=== PATIENT | female | born 1970 | race Asian ===

== ENCOUNTER 2023-01-10 19:27 | Emergency (ER) | payer OTHER ==
[~2023-01-10] VITALS: Ht 165.1 cm; Wt 64.9 kg
[2023-01-10 19:45] VITALS: TEMP 98.2
[2023-01-10 22:10] VITALS: BP 96/60
== END 2023-01-10 22:10 | disposition home or self-care (01) ==
LOC: ED 19:27
DX: G43.909 Migraine, unspecified, not intractable, without status migrainosus (principal)
CPT/HCPCS: 87651; 96372; 99283; J2270; J2550

== ENCOUNTER 2023-01-16 21:39 | Emergency (ER) | payer OTHER ==
[~2023-01-16] VITALS: Ht 165.1 cm; Wt 64.9 kg
[2023-01-16 21:40] VITALS: BP 168/93; TEMP 98.4
[2023-01-16 22:17] LABS: PLATELET COUNT 306 K/uL (152-353)
[2023-01-16 22:22] LABS: POTASSIUM 3.6 mmol/L (3.6-5.2)
[2023-01-16 22:45] LABS: PARTIAL THROMBOPLASTIN TIME 22.1 SECONDS (24.5-33.6)
== END 2023-01-17 00:30 | disposition home or self-care (01) ==
LOC: ED 21:39
PROVIDERS: Emergency Medicine
DX: M79.10 Myalgia, unspecified site (principal)
CPT/HCPCS: 36415; 80053; 82550; 84484; 85027; 85610; 85730; 87502; 87635; 87651; 93005; 96372; 99283; J1885; U0003

== ENCOUNTER 2023-01-24 19:16 | Emergency (ER) | payer OTHER ==
[~2023-01-24] VITALS: Ht 165.1 cm; Wt 63.5 kg
[2023-01-24 19:20] VITALS: TEMP 98.9
[2023-01-24 20:48] LABS: PLATELET COUNT 296 K/uL (152-353)
[2023-01-24 21:04] LABS: POTASSIUM 3.7 mmol/L (3.6-5.2)
[2023-01-25 00:45] VITALS: BP 159/98
== END 2023-01-25 00:45 | disposition home or self-care (01) ==
LOC: ED 19:16
PROVIDERS: Emergency Medicine Emergency Medical Services
DX: M25.59 Pain in other specified joint (principal)
CPT/HCPCS: 36415; 80048; 81002; 84484; 85027; 87502; 87635; 93005; 96361; 96374; 96375; 99284; J2270; J2405; U0001

== ENCOUNTER 2023-02-02 00:24 | Emergency (ER) | payer OTHER ==
[~2023-02-02] VITALS: Ht 165.1 cm; Wt 64.9 kg
[2023-02-02 00:30] VITALS: TEMP 97.4
[2023-02-02 01:21] LABS: POTASSIUM 3.7 mmol/L (3.6-5.2)
[2023-02-02 01:49] LABS: PLATELET COUNT 265 K/uL (152-353)
[2023-02-02 02:20] VITALS: BP 123/73
== END 2023-02-02 02:20 | disposition home or self-care (01) ==
LOC: ED 00:24
PROVIDERS: Emergency Medicine
DX: R10.9 Unspecified abdominal pain (principal); G43.909 Migraine, unspecified, not intractable, without status migrainosus; I70.90 Unspecified atherosclerosis; R52 Pain, unspecified; Z79.3 Long term (current) use of hormonal contraceptives
CPT/HCPCS: 36415; 80048; 80307; 84484; 85027; 93005; 96361; 96374; 96375; 99284; J0360; J2270; J2405